=== PATIENT | female | born 2005 | race African-American/Black ===

== ENCOUNTER 2025-01-12 08:30 | Emergency (ER) | payer MEDICAID ==
[~2025-01-12] VITALS: Ht 177.8 cm; Wt 54.5 kg
[2025-01-12 08:39] VITALS: TEMP 97.7
[2025-01-12 09:28] LABS: INFLUENZA TYPE A NEGATIVE FOR TYPE A (NEGATIVE); INFLUENZA TYPE B NEGATIVE FOR TYPE B (NEGATIVE)
[2025-01-12 09:28] LABS: COVID AG,FIA SOURCE NASAL SWAB; SARS-COV2 (COVID) ANTIGEN,FIA Negative (Negative)
[2025-01-12 10:30] VITALS: BP 125/77; PULSE 75; RESP 17; O2SAT 98
[2025-01-12] MEDS ORDERED: AMOX500C2 PO (12:21)
[2025-01-12] MEDS: OXYMETAZOLINE HCL 0.05% 15 ML NASAL SPRAY NASAL ONE (12:39)
[2025-01-12] MEDS: IBUPROFEN 400 MG TABLET PO ONE (12:39)
== END 2025-01-12 12:53 | disposition home or self-care (01) ==
LOC: EMS 08:30
DX: H66.91 Otitis media, unspecified, right ear (principal); Z20.822 Contact with and (suspected) exposure to COVID-19
CPT/HCPCS: 87430; 87804; 99283